=== PATIENT | male | born 1975 | race Caucasian/White ===

== ENCOUNTER → 2021-08-29 16:53 | Outpatient (CLI) | payer OTHER, SELFPAY ==
--- NOTE | 2021-08-29 17:04 | DI.RAD.S_ITS ---
PROCEDURE: XR ORBIT RT INDICATIONS: CHECKING FOR METAL IN EYES TECHNIQUE: 1 viewsof the orbits acquired. COMPARISON: None. FINDINGS: Bones: No fractures; orbital rims appear intact throughout. No suspicious bony lesions. Visualized sinuses appear clear. Soft tissues: No suspicious soft tissue calcifications or densities. No metallic foreign bodies identified. In the orbits. Metallic wire projects over the nose and infraorbital face likely related to face mask. IMPRESSION: No metallic foreign body identified in the orbits. Dictated by: Sherice Wilkinson MD, PhD on 08/30/2021 at 8:34 Approved by: Sherice Wilkinson MD, PhD on 08/30/2021 at 8:36
== END ==
PROVIDERS: PCP Family Medicine; Referring Provider Orthopaedic Surgery; Visit Provider Orthopaedic Surgery
DX: T15.91XA Foreign body on external eye, part unspecified, right eye, initial encounter (principal)
CPT/HCPCS: 70200

== ENCOUNTER → 2022-09-01 10:32 | Outpatient (CLI) | payer OTHER, SELFPAY ==
--- NOTE | 2022-09-01 10:35 | DI.RAD.S_ITS ---
PROCEDURE: XR FINGER RT MIN 2V INDICATIONS: Right ring finger pain in middle phalange TECHNIQUE: AP hand, 2 views of the 4th finger(s) acquired. COMPARISON: None. FINDINGS: Bones: No fractures or dislocations. No suspicious bony lesions. Soft tissues: No suspicious soft tissue calcifications. IMPRESSION: Unremarkable hand and 4th finger radiographs. If clinical concern persists, consider follow-up MR evaluation Approved by: Maverick Escobar M.D. on 09/01/2022 at 14:24
== END ==
PROVIDERS: PCP Family Medicine; Referring Provider Physician Assistant; Visit Provider Physician Assistant
DX: S63.614A Unspecified sprain of right ring finger, initial encounter (principal); X58.XXXA Exposure to other specified factors, initial encounter
CPT/HCPCS: 73140